=== PATIENT | male | born 1975 | race Caucasian/White ===

== ENCOUNTER 2019-04-07 14:38 | Emergency (ER) | payer SELFPAY ==
--- NOTE | 2019-04-07 14:54 | ER Report ---
History and Physical Time Seen By MD: 14:54 Hx. of Stated Complaint: LOWER BACK PAIN AFTER LIFTING TIRE HPI/ROS CHIEF COMPLAINT: Left upper back pain HISTORY OF PRESENT ILLNESS: Patient is a 44-year-old male here with complaints of left lower back pain with radiation to the midline after picking up a spare tire. Patient reports that he reached across his body and felt immediate pain radiating down his left leg to the foot with a tingling sensation. Patient denies bowel or bladder incontinence, bladder retention, motor weakness. Denies prior surgeries in the lower back. REVIEW OF SYSTEMS: Constitutional: No fever, no chills. Eyes: No discharge. ENT: No sore throat. Cardiovascular: No chest pain, no palpitations. Respiratory: No cough, no shortness of breath. Gastrointestinal: No abdominal pain, no vomiting. Genitourinary: No hematuria. Musculoskeletal: + Significant tenderness on palpation of the mid lumbar spine and the left paraspinal musculature with radiation to the left lower extremity Skin: No rashes. Neurological: Neurovascular exam intact in the distal extremities, patellar reflex brisk, sensation equal in bilateral lower extremities Allergies: Coded Allergies: Penicillins (Verified Allergy, Unknown, 04/07/19) Home Meds No Active Prescriptions or Reported Meds Constitutional Vital Sign - Last 24 Hours 04/07/19 14:49 Temp 98.1 Pulse 120 Resp 20 B/P (MAP) 138/108 Pulse Ox 96 O2 Delivery Room Air Physical Exam General Appearance: The patient is alert, has no immediate need for airway protection and no signs of toxicity. Uncomfortable appearing. Eyes: Pupils equal and round no pallor or injection. ENT, Mouth: Mucous membranes are moist. Respiratory: There are no retractions, lungs are clear to auscultation. Cardiovascular: Regular rate and rhythm. Gastrointestinal: Abdomen is soft and non tender, no masses, bowel sounds normal. Neurological: No focal neurological deficits on examination, brisk patellar reflexes, intact sensation equal bilaterally Skin: Warm and dry, no rashes. Musculoskeletal: Neck is supple non tender. Reproducible significant tenderness on palpation of the mid lumbar and left paraspinal musculature Extremities are nontender, nonswollen and have full range of motion. [ ] DIFFERENTIAL DIAGNOSIS: After history and physical exam differential diagnosis was considered for back pain including but not limited to muscular pain, herniated disc, spine fracture, intra-abdominal causes and urinary tract infect ion. Medical Decision Making EKG/Imaging Imaging PATIENT NAME: Tin Hicks : 1975 MR: [id number] V: [id number] EXAM DATE: ORDERING PHYSICIAN: RACHEL FOWLER TECHNOLOGIST: Location: [facility] - [place] Patient: Tin Hicks : 1975 Visit/Account:[id number] Date of Sevice: 04/07/2019 EXAMINATION: CT lumbar spine without intravenous contrast Comparison: None. History: Low back pain. Lifting injury. Procedure: Multiplanar noncontrast lumbar spine CT. One of the following dose optimization techniques was utilized in the performance of this exam: Automated exposure control; adjustment of the mA and/or kV according to the patient's size; or use of an iterative reconstruction technique. Specific details can be referenced in the facility's radiology CT exam operational policy. FINDINGS: Alignment: Within normal limits. Vertebral bodies: No fracture. Posterior neural arch: Negative. Disc spaces: L5-S1 and to lesser extent L4-L5 mild degenerative disc disease. Mild disc bulges at these levels result in mild canal and lateral recess narrowing. Additionally, there is moderate narrowing of the L5-S1 left neural foramina due to a combination of endplate osteophyte and disc material. Hardware: None. Visualized pelvis: Within normal limits. Soft tissues: Aortoiliac atherosclerosis. IMPRESSION: 1. No lumbar spine fracture or malalignment. 2. L4-L5 and L5-S1 mild degenerative change. This is associated with mild canal and bilateral lateral recess narrowing as well as moderate narrowing of the L5-S1 left neural foramina. 3. Aortoiliac atherosclerosis. ED Course/Re-evaluation ED Course Patient is a 44-year-old male here with complaints of left lower back pain, midline lumbar back pain with radiation to the left lower extremity distally consistent with radiculopathy and possible disc herniation after attempting to lift a tire from across his body. CT imaging of the lumbar spine showed mild narrowing. Patient was given prednisone, Valium, Percocet, Toradol for symptom management. Scripts were provided for prednisone, Flexeril, tramadol. Recommend one week follow-up with orthopedics as needed. Patient did not have bowel or bladder incontinence, urinary retention, motor weakness at this time. Neurovascular exam was intact distally in both lower extremities. Return precautions provided. Decision to Disposition Date: April 07, 2019 Decision to Disposition Time: 16:12 Depart Departure Latest Vital Signs Vital Signs Date Time Temp Pulse Resp B/P (MAP) Pulse Ox O2 Delivery O2 Flow Rate FiO2 04/07/19 14:49 98.1 120 20 138/108 96 Room Air Impression: Primary Impression: Lumbago Additional Impression: Radiculopathy of leg Condition: Improved Disposition: HOME OR SELF-CARE Referrals: ANJALI IRIZARRY MD New Scripts Tramadol Hcl (TRAMADOL HCL) 50 Mg Tablet 50 MG PO Q6H PRN for PAIN, #20 TAB 0 Refills Prov: RACHEL FOWLER DO 04/07/19 Cyclobenzaprine Hcl (CYCLOBENZAPRINE HCL) 10 Mg Tablet 10 MG PO Q8H PRN for MUSCLE SPASMS, #20 TAB 0 Refills Prov: RACHEL FOWLER DO 04/07/19 Prednisone (PREDNISONE) 50 Mg Tablet 50 MG PO QDAY for 4 Days, #4 TAB Prov: RACHEL FOWLER DO 04/07/19 Patient Instructions: Acute Low Back Pain (ED) Additional Instructions: Please take prednisone 50 mg daily for the next 4 days. Please take Flexeril one tablet every 8 hours as needed for muscle spasm, ibuprofen or naproxen as needed for primary pain control, tramadol every 6-8 hours as needed for breakthrough pain control. Please return immediately if you develop bowel or bladder incontinence, urinary retention, motor weakness of the lower extremities. Please follow up with orthopedics in the next week if your symptoms persist or do not resolve. Problem Qualifiers RACHEL FOWLER DO April 07, 2019 14:54
[2019-04-07] MEDS ORDERED: DIAZEPAM 5 MG TAB PO ONE (15:00)
[2019-04-07] MEDS ORDERED: KETOROLAC 60 MG/2 ML VIAL IM ONE (15:00)
[2019-04-07] MEDS ORDERED: oxyCODON/ACET (*)5/325MG (CII) 1 TAB TAB PO ONE (15:00)
--- NOTE | 2019-04-07 15:52 | RADIOLOGY IMAGING REPORT ---
FACILITY: [facility] PATIENT NAME: Tin Hicks : 1975 MR: [id number] V: [id number] EXAM DATE: ORDERING PHYSICIAN: RACHEL FOWLER TECHNOLOGIST: Location: [facility] - [place] Patient: Tin Hicks : 1975 Visit/Account:[id number] Date of Sevice: 04/07/2019 EXAMINATION: CT lumbar spine without intravenous contrast Comparison: None. History: Low back pain. Lifting injury. Procedure: Multiplanar noncontrast lumbar spine CT. One of the following dose optimization techniques was utilized in the performance of this exam: Autom ated exposure control; adjustment of the mA and/or kV according to the patient's size; or use of an i terative reconstruction technique. Specific details can be referenced in the facility's radiology C T exam operational policy. FINDINGS: Alignment: Within normal limits. Vertebral bodies: No fracture. Posterior neural arch: Negative. Disc spaces: L5-S1 and to lesser extent L4-L5 mild degenerative disc disease. Mild disc bulges at th adeola levels result in mild canal and lateral recess narrowing. Additionally, there is moderate narrow ing of the L5-S1 left neural foramina due to a combination of endplate osteophyte and disc material. Hardware: None. Visualized pelvis: Within normal limits. Soft tissues: Aortoiliac atherosclerosis. IMPRESSION: 1. No lumbar spine fracture or malalignment. 2. L4-L5 and L5-S1 mild degenerative change. This is associated with mild canal and bilateral later al recess narrowing as well as moderate narrowing of the L5-S1 left neural foramina. 3. Aortoiliac atherosclerosis. Report Dictated By: Jd Alfonso MD at 04/07/2019 3:41 PM Report E-Signed By: Jd Alfonso MD at 04/07/2019 3:48 PM WSN:[id number]
[2019-04-07] MEDS ORDERED: predniSONE 20 MG TAB PO ONE (16:05)
[2019-04-07] MEDS ORDERED: TRAM-420 PO (16:14)
[2019-04-07] MEDS ORDERED: PRED50TA22 PO (16:14)
[2019-04-07] MEDS ORDERED: CYCL10TA29 PO (16:14)
[2019-04-07 16:21] VITALS: BP 39/103
== END 2019-04-07 16:22 | disposition home or self-care (01) ==
LOC: ER 14:57
DX: M54.5 Low back pain (principal); M54.16 Radiculopathy, lumbar region
CPT/HCPCS: 72131; 96372; 99284; J1885; J7512